=== PATIENT | female | born 2000 | race Caucasian/White ===

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

== ENCOUNTER → 2020-02-22 09:36 | Outpatient (CLI) | payer BC, MEDICAID, SELFPAY ==
[2020-02-22 12:55] LABS: Total Protein 24 Hour,Urine 413 mg/24 hr (40-90); Total Volume,Urine 2750 mL (600-1600)
== END ==
PROVIDERS: Visit Provider Obstetrics & Gynecology
DX: R60.9 Edema, unspecified (principal)
CPT/HCPCS: 84155

== ENCOUNTER 2022-06-17 08:18 | Emergency (ER) | payer BC, OTHER, SELFPAY ==
[2022-06-17 08:28] VITALS: BP 139/75; PULSE 80; RESP 18; TEMP 37.4; O2SAT 95; BMI 27.4
[2022-06-17 08:37] LABS: UTC Strep Screen (Rapid) Negative (Negative)
[2022-06-17 08:39] VITALS: BP 139/70; PULSE 80; RESP 18; TEMP 37.4; O2SAT 95
--- NOTE | 2022-06-17 08:47 | EXP.UTC ---
Discharge Plan Disposition Patient Disposition: Home, Self-Care Condition: Good Prescriptions Prescriptions: New amoxicillin [amoxicillin] 500 mg tablet 500 mg PO BID 10 Days Qty: 20 0RF No Action [id number] ML syrup 10 ml PO Q4HP PRN (Reason: Cough) Qty: 250 0RF ondansetron 4 MG tablet,disintegrating 4 mg PO Q8H Qty: 10 0RF oseltamivir 75 MG capsule 75 mg PO BID Qty: 10 0RF Referrals Follow up/Referrals: Soliatrio Terrazas MD [Primary Care Provider] - See instructions Activity Restrictions/Add. Instructions Additional Instructions/Restrictions: Drink plenty of fluids. Take tylenol or ibuprofen for pain or fever. Take the medications as directed. Follow up with your regular doctor. GO TO THE ER FOR ANY WORSENING SYMPTOMS Clinical Impressions Clinical Impression: Pharyngitis Instructions Patient Instructions: DI for Pharyngitis/Tonsillopharyngitis -- Adult Discharge ED Provider: René Bragg [facility] General Stated complaint: Sore throat Mode of Arrival: Ambulatory Source of Information: Patient Limitations: No Limitations Time Seen by Provider: 06/17/22 08:47 Description of Symptoms (Recalled from Triage Doc. by RN): Patient reports sore throat since tuesday. HEENT Symptoms (Recalled from RN notes): Yes Resp Symptoms (Recalled from RN notes): No Skin Symptoms (Recalled from RN notes): No MS Symptoms (Recalled from RN notes): No Functional Status (Recalled from RN notes): wnl History of Present Illness Provider Complaint: She states that for the past 2 days she has had sore throat. She has had chills but no fever that she knows of. She has sinus congestion, but no significant chest congestion. Related Data Previous Rx's Medication Instructions Recorded [id number] 10 ml PO Q4HP PRN Cough #250 mL 06/15/17 2 mg-30 mg-10 mg/5 mL oral syrup ondansetron 4 mg disintegrating 4 mg PO Q8H Nausea & vomiting ##10 06/15/17 tablet oseltamivir 75 mg capsule 75 mg PO BID #10 caps 06/15/17 amoxicillin 500 mg tablet 500 mg PO BID 10 days #20 tabs 06/17/22 Allergies Allergy/AdvReac Type Severity Reaction Status Date / Time NKDA Allergy Unknown Uncoded 04/19/17 15:08 Worker's Comp Is this a Worker's Comp case?: No [facility] Disclaimer: The information contained in this section may have been updated after the patient was seen, as this information can be updated by other users. Social History Smoking Status: Never smoker alcohol intake: never current occupational status: employed Travel in the last 8 weeks: None ROS Obtained: Yes All systems reviewed & no additional complaints except as documented Constitutional Constitutional: Reports chills and Denies fever(s) Eyes Eyes: Denies eye discharge ENT Ears, Nose, Mouth, and Throat: Reports as per HPI Cardiovascular Cardiovascular: Denies chest pain Respiratory Respiratory: Denies chest congestion and Reports cough Gastrointestinal Gastrointestingal: Reports nausea; Denies abdominal pain, constipation, cramping, diarrhea or vomiting Musculoskeletal Musculoskeletal: Denies arthralgias Integumentary/Breasts Skin/Breast: Denies rash Neurologic Neurologic: Denies paresthesias Physical Exam General General appearance: alert and in no apparent distress Head Head exam: atraumatic, normocephalic and normal inspection Eye Eye exam: Present normal appearance, PERRL and EOMI ENT ENT exam: Present mucous membranes moist and normal external ear exam Expanded ENT Exam TM/Canal exam: Bilateral TM: erythema and bulging Nose exam: Absent sinus tenderness Mouth exam: Present normal external inspection; Absent drooling Teeth exam: Present normal inspection Throat exam: Present tonsillar erythema, tonsillomegaly and tonsillar exudate Neck Neck exam: Present normal inspection, full ROM and trachea midline; Absent tenderness, m
== END 2022-06-17 09:07 | disposition home or self-care (01) ==
PROVIDERS: Emergency Provider Nurse Practitioner Family; PCP Internal Medicine Adolescent Medicine
DX: J02.9 Acute pharyngitis, unspecified (principal)
CPT/HCPCS: 87880; 99212; G0463

== ENCOUNTER 2023-12-30 11:11 | Outpatient (CLI) | payer BC, OTHER, SELFPAY | END 2023-12-30 23:59 | disposition home or self-care (01) | LOC: LAB.DROPOF 01-03 11:12 | PROVIDERS: PCP Student in an Organized Health Care Education/Training Program; Visit Provider Student in an Organized Health Care Education/Training Program | DX: J02.9 Acute pharyngitis, unspecified (principal) | CPT/HCPCS: 87070 ==

== ENCOUNTER 2024-03-20 10:26 | Outpatient (CLI) | payer BC, OTHER, SELFPAY | END 2024-03-20 23:59 | disposition home or self-care (01) | LOC: LAB.DROPOF 03-21 13:20 | PROVIDERS: PCP Student in an Organized Health Care Education/Training Program; Visit Provider Student in an Organized Health Care Education/Training Program | DX: R39.9 Unspecified symptoms and signs involving the genitourinary system (principal) | CPT/HCPCS: 87086; 87088; 87186 ==

== ENCOUNTER 2024-11-15 12:47 | Outpatient (CLI) | payer BC, OTHER, SELFPAY ==
--- NOTE | 2024-11-15 12:53 | US_ITS ---
FINAL REPORT CLINICAL HISTORY: SWELLING MASS LUMP HEAD COMPARISON: None FINDINGS: Limited sonographic images were obtained of the soft tissues in the head and neck at the area of interest. There is no adenopathy, solid or cystic mass identified at the area of interest. IMPRESSION: No discrete lesions. Reviewed, Interpreted and Dictated by Ayanna Schaeffer MD Transcribed by Candace Castillo Authenticated and . [facility]
--- OUTSIDE RECORDS SUMMARY | 2024-11-15 12:53 | XMS_ITS | Data Portability ---
Author Organization [facility] Address [address] [place] [address] Assessment No assessment recorded. Plan of Treatment Reminders Order Date Submit Date Provider Last Modified By Organization Details Last Modified Time Details Appointments None recorded. Lab brca (1+2) mutation analysis, tumor tissue [facility]24 [facility] [address] [place], [address], 5 13:08:03 Hepatitis C IgG Ab, qual, serum 2024 025 [facility]), [address] [place], [address], 5 13:08:04 lipid panel, serum 2024 0[facility] [address] [place], [address], 5 13:08:03 CMP, serum or plasma 2024 025 [facility] [address] [place], [address], 5 13:08:02 CBC w/ auto diff 2024 025 [facility]), [address] [place], [address], 5 13:08:01 vitamin D, 25-hydroxy , total, serum 2024 025 [facility]), [address] [facility], [place], [address], 5 13:08:06 TSH, ultra-sens itive, serum 2024 025 [facility]), [address] [facility], [place], [address], 5 13:08:05 HIV 1 + 2, meaningful use set 2024 025 [facility]), [address] [facility], [place], [address], 5 13:08:[address] referral 2024 025 [facility] Georgia Reese DO, [address], [place] , [place], [address], 5 09:09:19 Procedures None recorded. Surgeries None recorded. Imaging XR, skull 2024 025 [facility] Centralized Scheduling, [address] , [place], [address], 11:16:42 Medication Orders Bactrim DS 800 mg-160 mg tablet 2024 025 [facility], [address] [place], [address], 5 13:54:40 Wegovy 2.4 mg/0.75 mL subcutaneo us pen injector [id number] [facility], [address] [place], [address], 5 11:56:28 Wegovy 2.4 mg/0.75 mL subcutaneo us pen injector 2024 025 [facility], [address], [place], [address], 15:03:53 Patient TargetsNo targets recorded. 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 Referring Physician: Gina Breen, Family Medicine, Encounter Date: 11/09/2024 Results Created Date Observation Date Name Description Value Unit Range Abnormal Flag Note LastModifiedBy Organization Detail LastModifiedTime 06/07/1906/08/2024 CBC WITH DIFFE RENTI AL/PL ATELE T WBC 5.8 x10e3 /uL 3.4-10 .8 normal Not Available [facility] ([facility]) [address] [place], [address], 07/13/2024 13:08:01 06/07/19 25 06/08/2024 CBC WITH DIFFE RENTI AL/PL ATELE T RBC 4.30 x10e6 /uL 3.77-5 .28 normal Not Available [facility] ([facility]) [address] [place], [address], 07/13/2024 13:08:01 06/07/19 25 06/08/2024 CBC WITH DIFFE RENTI AL/PL ATELE T hemoglobin 13.4 g/dL 11.1-1 5.9 normal Not Available [facility] ([facility]) [address] [place], [address], 07/13/2024 13:08:01 06/07/19 25 06/08/2024 CBC WITH DIFFE RENTI AL/PL ATELE T hematocrit 39.4 % 34.0-4 6.6 normal Not Available [facility] ([facility]) [address] [place], [address], 07/13/2024 13:08:01 06/07/19 25 06/08/2024 CBC WITH DIFFE RENTI AL/PL ATELE T MCV 92 fL 79-97 normal Not Available [facility] ([facility]) [address] [facility], [place], [address], 07/13/2024 13:08:01 06/07/19 25 06/08/2024 CBC WITH DIFFE RENTI AL/PL ATELE T MCH 31.2 pg 26.6-3 3.0 normal Not Available [facility] ([facility]) [address] [facility], [place], [address], 07/13/2024 13:08:01 06/07/19 25 06/08/2024 CBC WITH DIFFE RENTI AL/PL ATELE T MCHC 34.0 g/dL 31.5-3 5.7 normal Not Available [facility] ([facility]) [address] [facility], [place], [address], 07/13/2024 13:08:01 06/07/19 25 06/08/2024 CBC WITH DIFFE RENTI AL/PL ATELE T RDW 12.1 % 11.7-1 5.4 Not Available [facility] ([facility]) [address] [facility], [place], [address], 07/13/2024 13:08:01 06/07/19 25 06/08/2024 CBC WITH DIFFE RENTI AL/PL ATELE T platelets 259 x10e3 /uL 150-45 0 normal Not Available [facility] ([facility]) [address] [facility], [place], [address], 07/13/2024 13:08:01 06/07/19 25 06/08/2024 CBC WITH DIFFE RENTI AL/PL ATELE T neutrophils 62 % not estab. normal Not Available [facility] ([facility]) [address] [facility], [place], [address], 07/13/2024 13:08:01 06/07/19 25 06/08/2024 CBC WITH DIFFE RENTI AL/PL ATELE T lymphs 30 % not estab. normal Not Available [facility] ([facility]) [address] [facility], [place], [address], 07/13/2024 13:08:01 06/07/19 25 06/08/2024 CBC WITH DIFFE RENTI AL/PL ATELE T monocytes 7 % not estab. normal Not Available [facility] ([facility]) [address] [facility], [place], [address], 07/13/2024 13:08:01 06/07/19 25 06/08/2024 CBC WITH DIFFE RENTI AL/PL ATELE T eos 1 % not estab. normal Not Available [facility] ([facility]) [address] [facility], [place], [address], 07/13/2024 13:08:01 06/07/19 25 06/08/2024 CBC WITH DIFFE RENTI AL/PL ATELE T basos 0 % not estab. normal Not Available [facility] ([facility]) [address] [place], [address], 07/13/2024 13:08:01 06/07/19 25 06/08/2024 CBC WITH DIFFE RENTI AL/PL ATELE T immature cells INVENTORY PLANNER Not Available [facility] ([facility]) [address] [facility], [place], [address], 07/13/2024 13:08:01 06/07/19 25 06/08/2024 CBC WITH DIFFE RENTI AL/PL ATELE T neutrophils (absolute) 3.6 x10e3 /uL 1.4-7. 0 normal Not Available [facility] ([facility]) [address] [facility], [place], [address], 07/13/2024 13:08:01 06/07/19 25 06/08/2024 CBC WITH DIFFE RENTI AL/PL ATELE T lymphs (absolute) 1.7 x10e3 /uL 0.7-3. 1 normal Not Available [facility] ([facility]) [address] [place], [address], 07/13/2024 13:08:01 06/07/19 25 06/08/2024 CBC WITH DIFFE RENTI AL/PL ATELE T monocytes(ab solute) 0.4 x10e3 /uL 0.1-0. 9 normal Not Available [facility] ([facility]) [address] [place], [address], 07/13/2024 13:08:01 06/07/19 25 06/08/2024 CBC WITH DIFFE RENTI AL/PL ATELE T eos (absolute) 0.0 x10e3 /uL 0.0-0. 4 normal Not Available [facility] ([facility]) [address] [place], [address], 07/13/2024 13:08:01 06/07/19 25 06/08/2024 CBC WITH DIFFE RENTI AL/PL ATELE T baso (absolute) 0.0 x10e3 /uL 0.0-0. 2 normal Not Available [facility] ([facility]) [address] [place], [address], 07/13/2024 13:08:01 06/07/19 25 06/08/2024 CBC WITH DIFFE RENTI AL/PL ATELE T immature granulocytes 0 % not estab. Not Available [facility] ([facility]) [address] [place], [address], 07/13/2024 13:08:01 06/07/19 25 06/08/2024 CBC WITH DIFFE RENTI AL/PL ATELE T immature grans (abs) 0.0 x10e3 /uL 0.0-0. 1 Not Available [facility] ([facility]) [address] [place], [address], 07/13/2024 13:08:01 06/07/19 25 06/08/2024 CBC WITH DIFFE RENTI AL/PL ATELE T NRBC INVENTORY PLANNER Not Available [facility] ([facility]) [address] [facility], [place], [address], 07/13/2024 13:08:01 06/07/19 25 06/08/2024 CBC WITH DIFFE RENTI AL/PL ATELE T hematology comments: INVENTORY PLANNER Not Available [facility] ([facility]) [address] [facility], [place], [address], 07/13/2024 13:08:01 06/07/19 25 06/08/2024 COMP. METAB OLIC PANEL (14) glucose 75 mg/dL 70-99 normal Not Available [facility] ([facility]) [address] [facility], [place], [address], 07/13/2024 13:08:02 06/07/19 25 06/08/2024 COMP. METAB OLIC PANEL (14) BUN 9 mg/dL 6-20 normal Not Available [facility] ([facility]) [address] [place], [address], 07/13/2024 13:08:02 06/07/19 25 06/08/2024 COMP. METAB OLIC PANEL (14) creatinine 0.69 mg/dL 0.57-1 .00 normal Not Available [facility] ([facility]) [address] [facility], [place], [address], 07/13/2024 13:08:02 06/07/19 25 06/08/2024 COMP. METAB OLIC PANEL (14) eGFR 124 mL/mi n/1.7 3 >59 normal Not Available [facility] ([facility]) [address] [place], [address], 07/13/2024 13:08:02 06/07/19 25 06/08/2024 COMP. METAB OLIC PANEL (14) BUN/creatini ne ratio 13 9-23 normal Not Available [facility] ([facility]) [address] [place], [address], 07/13/2024 13:08:02 06/07/19 25 06/08/2024 COMP. METAB OLIC PANEL (14) sodium 141 mmol/ L 134-14 4 normal Not Available [facility] ([facility]) [address] [place], [address], 07/13/2024 13:08:02 06/07/19 25 06/08/2024 COMP. METAB OLIC PANEL (14) potassium 4.1 mmol/ L 3.5-5. 2 normal Not Available [facility] ([facility]) [address] [place], [address], 07/13/2024 13:08:02 06/07/19 25 06/08/2024 COMP. METAB OLIC PANEL (14) chloride 104 mmol/ L 96-106 normal Not Available [facility] ([facility]) [address] [place], [address], 07/13/2024 13:08:02 06/07/19 25 06/08/2024 COMP. METAB OLIC PANEL (14) carbon dioxide, total 23 mmol/ L 20-29 normal Not Available [facility] ([facility]) [address] [place], [address], 07/13/2024 13:08:02 06/07/19 25 06/08/2024 COMP. METAB OLIC PANEL (14) calcium 9.8 mg/dL 8.7-10 .2 normal Not Available [facility] ([facility]) [address] [place], [address], 07/13/2024 13:08:02 06/07/19 25 06/08/2024 COMP. METAB OLIC PANEL (14) protein, total 7.1 g/dL 6.0-8. 5 normal Not Available [facility] ([facility]) [address] [place], [address], 07/13/2024 13:08:02 06/07/19 25 06/08/2024 COMP. METAB OLIC PANEL (14) albumin 4.8 g/dL 4.0-5. 0 normal Not Available [facility] ([facility]) [address] [place], [address], 07/13/2024 13:08:02 06/07/19 25 06/08/2024 COMP. METAB OLIC PANEL (14) globulin, total 2.3 g/dL 1.5-4. 5 Not Available [facility] ([facility]) [address] [place], [address], 07/13/2024 13:08:02 06/07/19 25 06/08/2024 COMP. METAB OLIC PANEL (14) bilirubin, total 0.3 mg/dL 0.0-1. 2 normal Not Available [facility] ([facility]) [address] [place], [address], 07/13/2024 13:08:02 06/07/19 25 06/08/2024 COMP. METAB OLIC PANEL (14) alkaline phosphatase 49 IU/L 44-121 normal Not Available [facility] ([facility]) [address] [place], [address], 07/13/2024 13:08:02 06/07/19 25 06/08/2024 COMP. METAB OLIC PANEL (14) AST (SGOT) 15 IU/L 0-40 normal Not Available [facility] ([facility]) [address] [place], [address], 07/13/2024 13:08:02 06/07/19 25 06/08/2024 COMP. METAB OLIC PANEL (14) ALT (SGPT) 10 IU/L 0-32 normal Not Available [facility] ([facility]) [address] [place], [address], 07/13/2024 13:08:02 06/07/19 25 07/13/2024 BRCAS SURE COMPR EHENS PAIGE PANEL specimen type INVENTORY PLANNER Not Available [facility] ([facility]) [address] [facility], [place], [address], 07/13/2024 13:08:02 06/07/19 25 07/13/2024 BRCAS SURE COMPR EHENS PAIGE PANEL preauthoriza tion Commen t Addit ional infor matio n requi red from order ing provi page and/o r patie nt. Conta ct attem pts unsuc cessf ul. Test cance led. Pleas e conta ct 866-2 48-12 65. Not Available [facility] ([facility]) [address] [facility], [place], [address], 07/13/2024 13:08:02 06/07/19 25 07/13/2024 BRCAS SURE COMPR EHENS PAIGE PANEL clinical indication INVENTORY PLANNER Not Available [facility] ([facility]) [address] [facility], [place], [address], 07/13/2024 13:08:02 06/07/19 25 07/13/2024 BRCAS SURE COMPR EHENS PAIGE PANEL results TNP Test not perfo rmed Not Available [facility] ([facility]) [address] [facility], [place], [address], 07/13/2024 13:08:02 06/07/19 25 07/13/2024 BRCAS SURE COMPR EHENS PAIGE PANEL interpretati on INVENTORY PLANNER Not Available [facility] ([facility]) [address] [facility], [place], [address], 07/13/2024 13:08:02 06/07/19 25 07/13/2024 BRCAS SURE COMPR EHENS PAIGE PANEL additional clinical inform. INVENTORY PLANNER Not Available [facility] ([facility]) [address] [facility], [place], [address], 07/13/2024 13:08:02 06/07/19 25 07/13/2024 BRCAS SURE COMPR EHENS PAIGE PANEL recommendati ons INVENTORY PLANNER Not Available [facility] ([facility]) [address] [facility], [place], [address], 07/13/2024 13:08:02 06/07/19 25 07/13/2024 BRCAS SURE COMPR EHENS PAIGE PANEL comments INVENTORY PLANNER Not Available [facility] ([facility]) [address] [facility], [place], [address], 07/13/2024 13:08:02 06/07/19 25 07/13/2024 BRCAS SURE COMPR EHENS PAIGE PANEL methods and limitations INVENTORY PLANNER Not Available [facility] ([facility]) [address] [facility], [place], [address], 07/13/2024 13:08:02 06/07/19 25 07/13/2024 BRCAS SURE COMPR EHENS PAIGE PANEL references INVENTORY PLANNER Not Available [facility] ([facility]) [address] [facility], [place], [address], 07/13/2024 13:08:02 06/07/19 25 07/13/2024 BRCAS SURE COMPR EHENS PAIGE PANEL released by INVENTORY PLANNER Not Available [facility] ([facility]) [address] [facility], [place], [address], 07/13/2024 13:08:02 06/07/19 25 07/13/2024 BRCAS SURE COMPR EHENS PAIGE PANEL pdf INVENTORY PLANNER Not Available [facility] ([facility]) [address] [facility], [place], [address], 07/13/2024 13:08:02 06/07/19 25 06/08/2024 LIPID PANEL cholesterol, total 146 mg/dL 100-19 9 normal Not Available [facility] ([facility]) [address] [place], [address], 07/13/2024 13:08:03 06/07/19 25 06/08/2024 LIPID PANEL triglyceride s 53 mg/dL 0-149 normal Not Available [facility] ([facility]) [address] [place], [address], 07/13/2024 13:08:03 06/07/19 25 06/08/2024 LIPID PANEL HDL cholesterol 66 mg/dL >39 normal Not Available [facility] ([facility]) [address] [place], [address], 07/13/2024 13:08:03 06/07/19 25 06/08/2024 LIPID PANEL VLDL cholesterol darnell 11 mg/dL 5-40 Not Available [facility] ([facility]) [address] [place], [address], 07/13/2024 13:08:03 06/07/19 25 06/08/2024 LIPID PANEL LDL chol calc ([facility]) 69 mg/dL 0-99 Not Available [facility] ([facility]) [address] [place], [address], 07/13/2024 13:08:03 06/07/19 25 06/08/2024 LIPID PANEL LDL calc comment: INVENTORY PLANNER Not Available [facility] ([facility]) [address] [facility], [place], [address], 07/13/2024 13:08:03 06/07/19 25 06/08/2024 HCV ANTIB KEVIN CASCA DE(PC R/GEN O) HCV Ab Non Reacti ve non reacti ve Not Available [facility] ([facility]) [address] [place], [address], 07/13/2024 13:08:04 06/07/19 25 06/08/2024 HCV ANTIB KEVIN CASCA DE(PC R/GEN O) interpretati on: Commen t Not infec [place] with HCV unles s early or acute infec tion is suspe cted (whic h may be delay ed in an immun ocomp romis ed indiv idual ), or other evide nce exist s to indic ate HCV infec tion. Not Available [facility] ([facility]) [address] [facility], [place], [address], 07/13/2024 13:08:04 06/07/19 25 06/08/2024 TSH TSH 1.640 uIU/m L 0.450- 4.500 normal Not Available [facility] ([facility]) [address] [facility], [place], [address], 07/13/2024 13:08:05 06/07/19 25 06/08/2024 VITAM IN D, 25-HY DROXY vitamin D, 25-hydroxy 28.9 NG/mL 30.0-1 00.0 below low normal Vitam in D defic iency has been defin ed by the Insti tute of Medic ine and an Endoc rine Socie ty pract ice guide line as a level of serum 25-OH vitam in D less than 20 ng/mL (1,2) . The Endoc rine Socie ty went on to furth er defin e vitam in D insuf ficie ncy as a level betwe en 21 and 29 ng/mL (2). 1. IOM (Inst itute of Medic ine). 2009. Dieta ry refer ence intak es for calci um and D. Herbie matson [place]: [facility] . 2. Hanny barger MF, Soham hsieh [place], Chiki off-F errar i VELAZQUEZ, et al. Evalu ation , treat ment, and preve ntion of vitam in D defic iency : an Endoc rine Socie ty clini darnell pract ice guide line. JCEM. 2010; 96(7) :1911 -30. Not Available [facility] ([facility]) [address] [facility], [place], [address], 07/13/2024 13:08:05 06/07/19 25 06/08/2024 HIV AB/P2 4 AG WITH REFLE X HIV Ab/P24 Ag screen Non Reacti ve non reacti ve HIV-1 /HIV- 2 antib odies and HIV-1 p24 antig en were NOT detec [place]. There is no labor atory evide nce of HIV infec tion. HIV Negat paige Not Available [facility] ([facility]) [address] [facility], [place], [address], 07/13/2024 13:08:06 11/13/19 25 11/09/2024 XR, skull No observ ation record ed. [email or web address] [facility] (Rad[facility]) [address] , [place], [address], 11/12/2024 17:35:21 Result Notes None recorded. Problems Name Problem SNOMED Code Status Onset Date Resolution Date Notes Provider Name and Address Organization Details Recorded Time Obesity 633124639 Active [address] [place] [address], [phone], [employer] 5 11:47:10 Vitamin D deficiency 35060034 Active [address] [place] [address], [address] 8, [employer] 11:47:15 Mass of scalp 829914478 Active [address], [address], [employer] 13:54:06 Problem Notes None recorded. Medical Equipment None Reported. Allergies No known drug allergies Medications Name Sig Start Date Stop Date Status Note LastModified by Organization Details LastModified Time ondansetron 8 mg disintegrat ing tablet 06/07 completed Not Available Not Available Not Available oxycodone-a cetaminophe n 5 mg-325 mg tablet 06/07 completed Not Available Not Available Not Available phenazopyri dine 100 mg tablet 06/07 completed Not Available Not Available Not Available mupirocin 2 % topical ointment 06/07 completed Not Available Not Available Not Available ergocalcife rol (vitamin D2) 1,250 mcg (50,000 unit) capsule TAKE 1 CAPSULE BY MOUTH ONCE A WEEK FOR VITAMIN D DEFICIENC Y active Not Available Not Available No t Available methylpredn isolone 4 mg tablets in a dose pack 06/07 completed Not Available Not Available Not Available amoxicillin 500 mg-potassiu m clavulanate 125 mg tablet 06/07 completed Not Available Not Available Not Available Bactrim DS 800 mg-160 mg tablet Take 1 tablet every 12 hours by oral route for 10 days. 2024 active Not Available Not Available Not Avai lable nitrofurant oin monohydrate /macrocryst als 100 mg capsule 06/07 completed Not Available Not Available Not Available cholecalcif nat (vitamin D3) 50 mcg (2,000 unit) capsule TAKE 1 CAPSULE BY MOUTH ONCE DAILY active Not Available Not Available No t Available Wegovy 2.4 mg/0.75 mL subcutaneou s pen injector active Not Available Not Available Not Available Wegovy 1.7 mg/0.75 mL subcutaneou s pen injector INJECT 1 SYRINGE SUBCUTANE OUSLY ONCE A WEEK 06/07 completed Not Available Not Available Not Available Wegovy 0.25 mg/0.5 mL subcutaneou s pen injector INJECT 1 SYRINGE SUBCUTANE OUSLY ONCE WEEKLY 06/07 completed Not Available Not Available Not Available Wegovy 0.5 mg/0.5 mL subcutaneou s pen injector INJECT 1 SYRINGE SUBCUTANE OUSLY ONCE A WEEK ON WEEKS 5-8 OF THERAPY 06/07 completed Not Available Not Available Not Available Vitals Date Recorded Body height Body mass index (BMI) Body weight Body temperature Heart rate Oxygen saturation Oxygen saturation in Arterial blood by Pulse oximetry Systolic And Diastolic Provider Name and Address Organization Details Last Updated DateTime 5 167.64 cm 24 kg/m2 49135.2 6 g 98.3 [degF] 80 /min 99 % 99 % 104/70 mm[Hg] [facility], [facility]. 5 14:51:12 Date Recorded Body height Body mass index (BMI) Body weight Oxygen saturation Oxygen saturation in Arterial blood by Pulse oximetry Heart rate Body temperature Systolic And Diastolic Provider Name and Address Organization Details Last Updated DateTime 5 167.64 cm 22.5 kg/m2 33805.4 9 g 100 % 100 % 84 /min 98 [degF] 104/70 mm[Hg] [employer] 5 10:37:15 Date Recorded Body height Body mass index (BMI) Body weight Oxygen saturation Oxygen saturation in Arterial blood by Pulse oximetry Heart rate Body temperature Systolic And Diastolic Provider Name and Address Organization Details Last Updated DateTime 5 167.64 cm 22.9 kg/m2 89273.6 8 g 98 % 98 % 86 /min 98.2 [degF] 102/68 mm[Hg] [employer] 5 13:41:31 Social History Question Answer Notes LastModified by Organizat ion Details LastModified Time Tobacco Smoking Status Never Smoker [employer] 06/07/2024 14:53:31 Do You Have An Advance Directive? No Information not available 06/07/2024 Is Your Home Air Conditioned? Yes Information not available 06/07/2024 Do You Wear A Helmet When Biking? No Information not available 06/07/2024 Are You Blind Or Do You Have Difficulty Seeing? No Information not available 06/07/2024 What Is Your Level Of Caffeine Consumption? Occasional Information not available 06/07/2024 What Type Of Extended Day Teacher Do You Use? [employer] Information not available 06/07/2024 Have You Been To An Area Known To Be High Risk For COVID-19? No Information not available 06/07/2024 Are You Deaf Or Do You Have Serious Difficulty Hearing? No Information not available 06/07/2024 What Type Of Diet Are You Following? REGULAR Information not available 06/07/2024 Who Is Your Employer? [employer] Information not available 06/07/2024 How Many Days Of Moderate To Strenuous Exercise, Like A Brisk Walk, Did You Do In The Last 7 Days? 7 Information not available 06/07/2024 Have There Been Any Changes To Your Family Or Social Situation? No Information not available 06/07/2024 Are There Any Guns Present In Your Home? Yes Information not available 06/07/2024 Which Of Your Hands Is Dominant? Left Information not available 06/07/2024 What Is Your Home Situation? Mother Information not available 06/07/2024 Do You Have A Medical Power Of Pig Lead Melter Helper? No Information not available 06/07/2024 What Was The Date Of Your Most Recent Tobacco Screening? 11/09/2024 Information not available 11/09/2024 Do You Have Any Pets? Yes Information not available 06/07/2024 Do You Use Protection During Sex? Usually Information not available 06/07/2024 What Is Your Relationship Status? Information not available 06/07/2024 Have You Repeated Any Grades? No Information not available 06/07/2024 Do You Use Your Seat Belt Or Car Seat Routinely? Yes Information not available 06/07/2024 Are You Sexually Active? Yes Information not available 06/07/2024 Do You Have Any Siblings? Yes Information not available 06/07/2024 Do You Have Smoke And Carbon Monoxide Detectors In Your Home? Yes Information not available 06/07/2024 At What Age Did You Start Smoking Tobacco? 21 Information not available 06/07/2024 Are You Passively Exposed To Smoke? No Information not available 06/07/2024 Are There Any Smokers In Your House? No Information not available 06/07/2024 How Much Tobacco Do You Smoke? No Information not available 06/07/2024 Do You Participate In Social Media? Yes Information not available 06/07/2024 Do You Use Sunscreen Routinely? No Information not available 06/07/2024 Has Tobacco Cessation Counseling Been Provided? Yes Information not available 06/07/2024 On What Date Was Tobacco Cessation Counseling Provided? 11/09/2024 Information not available 11/09/2024 How Many Years Have You Smoked Tobacco? 4 Information not available 06/07/2024 Have You Recently Traveled Abroad? No Information not available 06/07/2024 Do You Have Difficulty Walking Or Climbing Stairs? No Information not available 06/07/2024 Are You Currently In School? No Information not available 06/07/2024 What Contraceptive Method Was Reported At Start Of This Visit? None Information not available 06/07/2024 Do You Have Any Dietary Restrictions? No Information not available 06/07/2024 Sex: Female Functional Status Question Answer Note LastModified by Organizat ion Details LastModified Time Do you use any illicit or recreational drugs? No Information not available 06/07/2024 Do you or have you ever used any other forms of tobacco or nicotine? Yes Information not available 06/07/2024 What is your level of alcohol consumption? None Information not available 06/07/2024 Do you or have you ever used smokeless tobacco? Never used smokeless tobacco Information not available 06/07/2024 Are you currently employed? Yes Information not available 06/07/2024 Do you have transportation difficulties? No Information not available 06/07/2024 Are you able to walk? YESWOREST Information not available 06/07/2024 Do you have difficulty doing errands alone? No Information not available 06/07/2024 Are you able to care for yourself? Yes Information n ot available 06/07/2024 Do you have difficulty dressing or bathing? No Information not available 06/07/2024 Do you or have you ever used e-cigarettes or vape? Current user of electronic cigarettes Information not available 06/07/2024 What is your exercise level? Moderate Information not available 06/07/2024 Mental Status Question Answer Note LastModified by Organizat ion Details LastModified Time Do you feel stressed (tense, restless, nervous, or anxious, or unable to sleep at night)? [id number] Information not available 06/07/2024 Do you have difficulty concentrating, remembering or making decisions? No Information no t available 06/07/2024 Are you or have you been involved with bullying? No Information not available 06/07/2024 Family History Relationship Description Onset Age of this Age Resolved Age Notes LastModified by Organization Details LastModified Time Mother Malignant tumor of breast Not available 2024 14:51:53 Unspecified Relation Malignant tumor of breast Not available 2024 14:51:53 Maternal Grandmother Malignant tumor of breast Not available 2024 14:51:53 Paternal Grandfather Malignant tumor of pancreas Not available 2024 14:52:52 Medical History Condition Response Coronary Artery Disease N Other N Gout N Blood Diseases N Kidney Stones N Hyperthyroidism N Blood Transfusion N Breast Cancer N Emergency room visit since last appointm ent. N Lung Disease N COPD N Depression N Dermatologic Disorders N Hypothyroidism N Defects or Inherited Disease N Developmental or Behavioral Disorders N Breast Problem N Difficulty Swallowing N Anesthesia Complications N History of STI N Meniere's disease N Anxiety Disorder N Muscle, Joint, or Bone Problems N Autoimmune disease N Vision or Eye Problems N Arthritis N Polyps N Infertility N Mental Disorder N Congenital Anomalies N Acid Reflux (GERD) N Cancer N Stroke N Neurologic/Epilepsy N Endometriosis N Bladder or Kidney Problems N High Cholesterol N Liver Disease N Psychiatric/Mental Health Condition N Organ Transplant N Dialysis N Schizophrenia N Fibromyalgia N Headaches N Kidney Disease N Allergies/Hayfever N Heart Problems N Ear or Hearing Problems N Hospitalizations N Learning Disorder N Artificial Joints N Thyroid Problems N GI Problems N Acne N ADD/ADHD N Eating Disorder N Anemia N Constipation N Mental Illness N Diabetes N Ovarian Cancer N Bedwetting N Hepatitis/Liver Disease N Tuberculosis N Eczema N Abuse/Domestic Violence N Diverticulitis N Asthma N Trauma/Violence N Substance Abuse N Reflux/GERD N Depression/ depression N Hepatitis N Heart Disease N Pulmonary Embolism N Tourette Syndrome N Chronic Ear Infections N Pre-Eclampsia N Hypertension N Chicken Pox N Autism Spectrum Disorder (ASD) N Osteoporosis N Thrombophilias N Gynecological History Statement/Question Response Abnormal Pap N Flow Moderate Date of LMP 11/08/2024 HPV Vaccine N Duration of Flow (days) 6 Most Recent Mammogram Age at Menarche 13 Current Control Method None Age at First Child 20 Frequency of Cycle (Q days) 26 Sexually Active? Y Menses Monthly Y Date of Last Pap Smear LMP Definite Obstetrics History GPAL:G 1 P 1 0 0 1 Type Value Multiple Births 0 Full Term 1 Induced 0 Spontaneous 0 Premature 0 Living 1 Ectopics 0 Total 1 Immunizations Vaccine Type Date Status Note Provider Nam e and Address Organization Details Recorded Time Hib, unspecified formulation 1 completed Radha Vice null, [employer] 06/07/2024 14:52:03 Hib, unspecified formulation 1 completed Radha Vice null, [employer] 06/07/2024 14:52:03 Hib, unspecified formulation 1 completed Radha Vice null, [employer] 06/07/2024 14:52:03 Hib, unspecified formulation 2 completed Radha Vice null, [employer] 06/07/2024 14:52:03 IPV 1 completed Radha Vice null, [employer] 06/07/2024 14:52:03 IPV 1 completed Radha Vice null, [employer] 06/07/2024 14:52:03 IPV 1 completed Radha Vice null, [employer] 06/07/2024 14:52:03 IPV 4 completed Radha Vice null, [employer] 06/07/2024 14:52:03 MMR 2 completed Radha Vice null, [employer] 06/07/2024 14:52:03 MMR 5 completed Radha Vice null, [employer] 06/07/2024 14:52:03 Tdap 2 completed Radha Vice null, [employer] 06/07/2024 14:52:03 varicella 5 completed Radha Vice null, [employer] 06/07/2024 14:52:03 HPV, quadrivalent 2 completed Radha Vice null, [employer] 06/07/2024 14:52:03 Hep B, adolescent or pediatric 1 completed Radha Vice null, [employer] 06/07/2024 14:52:03 Hep B, adolescent or pediatric 1 completed Radha Vice null, [employer] 06/07/2024 14:52:03 Hep B, adolescent or pediatric 0 completed Radha Vice null, [employer] 06/07/2024 14:52:03 Hep A, ped/adol, 2 dose 2 completed Radha Vice null, [employer] 06/07/2024 14:52:03 Hep A, ped/adol, 2 dose 8 completed Radha Vice null, [employer] 06/07/2024 14:52:03 meningococcal MCV4P 8 completed Radha Vice null, [employer] 06/07/2024 14:52:03 DTaP, unspecified formulation 1 completed Radha Vice null, [employer] 06/07/2024 14:52:03 DTaP, unspecified formulation 1 completed Radha Vice null, [employer] 06/07/2024 14:52:03 DTaP, unspecified formulation 1 completed Radha Vice null, [employer] 06/07/2024 14:52:03 DTaP, unspecified formulation 2 completed Radha Vice null, [employer] 06/07/2024 14:52:03 DTaP, unspecified formulation 4 completed Radha Vice null, [employer] 06/07/2024 14:52:03 meningococcal MCV4, unspecified formulation 2 completed Radha Vice null, [employer] 06/07/2024 14:52:03 Past Encounters Encounter ID Performer Location Encounter Start Date Encounter Closed Date Diagnosis/Indication Diagnosis SNOMED-CT Code Diagnosis ICD10 Code Diagnosis Note [id number] JULIANNA Salazar [facility] [address] [place] [address] 06/07/2024 14:35:24 06/07/2024 14:36:03 Family history of breast cancer 369013925 Z80.3 Adult heal th examination 585785965 Z00.00 HIV screening 709573217 Z11.4 Hepatitis C screening 41 3185829 Z11.59 Obesity 209518674 E66.9 Body mass index 20-24 - normal 528084193 Z68.24 [id number] JULIANNA Salazar [facility] [address] [place] [address] 10/02/2024 10:25:23 10/02/2024 11:37:23 Body mass index 20-24 - normal 895258069 Z68.22 Obesity 140332180 E66.9 [id number] JULIANNA Salazar [facility] [address] [place] [address] 11/09/2024 13:33:13 11/09/2024 14:00:19 Gynecologic examination 49334922 Z01.419 Mass of scalp 391819409 R22.0 Health Concerns Section Related Observation LastModified by Organization Detai ls LastModified Time None Recorded Concern Status LastModified by Organization Details LastModified Time None Recorded Advance Directives Directive N: Payers Insurance Date Sequence Insurance Name Policy Number Policy Martins Covered Member ID Martins Member ID Guarantor Name 11/09/2024 2 [facility] (MEDICAID HMO) Sharee Euceda [id number] Sharee Kinsey 11/09/2024 1 [place] [id number] 2 Reyna N Kinsey [id number] [place] Rodriguez[place]sey 06/07/2024 1 [place] Sharee Kinsey [id number] Sharee Euceda Notes Date Note Type Note Provider Name and Address Organization Details Recorded Time 06/07/2024 text/html Patient presents to establish care.Has been using [employer] and has lost a lot of weight.Her aunt of breast cancer in early 40s. Her grandmother and great grand mother also had breast cancer. Her mom was positive for BRCA and had prophylactic mastectomy. SHe would like to be tested. JULIANNA Salazar [address] [place] [address], [phone], [employer] 06/07/2024 17:26:56 10/02/2024 text/html Patient presents to followup.Has lost weight with [employer] and is doing well. JULIANNA Salazar [address] [place], [address], [employer] 10/02/2024 11:56:30 11/09/2024 text/html Noticed a knot o n the back of her head a week or so ago. It is tender. Seems to be getting a little bigger. No injury. JULIANNA Salazar [address] [place], [address], [employer] 11/12/2024 17:35:05 OBGyn Episode No OBEpisode recorded.
--- OUTSIDE RECORDS SUMMARY | 2024-11-15 12:53 | XMS_ITS | Encounter Summary ---
Author Organization [facility] Address [address] [place] [address] Care Team Providers Care International Accountant Name Role Phone Pcp, No Primary Care Provider Unavailabl e Reason for Visit * Reason Onset Date Comments Genetic Counseling Intake 09/17/2024 Encounter Details Date Type Department Care Team (Late Contact Info) Description 09/17/2024 Telephone PAV [facility] Genetic Counseling [address] [facility] [place] [address] Arely [place] Genetic Counseling Intake Social History Tobacco Use Types Packs/Day Years Used Date Smoking Tobacco: Never Assessed Comments Unknown Sex and Gender Information Value Date Recorded Sex Assigned at Not on file Legal Sex Female 7:37 PM EDT Gender Identity Not on file Sexual Orientation Not on file documented as of this encounter Miscellaneous Notes * Telephone Encounter - René Morales - 09/17/2024 10:20 AM EDT Genetic Counseling Stitch Bonder Machine Operator Helper called patient to obtain family history information prior to their visit. Patient unable to provide info at this time so [facility] reminded patient of their upcoming genetic counseling appointment via telehealth and received verbal confirmation they would be attending. Asked patient to please fill out family history questionnaire via [employer] before their visit. documented in this encounter Plan of Treatment Upcoming Encounters Date Type Department Care Team (Late Contact Info) Description 11/29/2024 1:15 PM EDT Clinical Support Pav [facility] Ne[facility] Res[facility] [address] [facility] [place] [address] Arely [place] documented as of this encounter Visit Diagnoses Not on filedocumented in this encounter Care Teams International Accountant Relationship Specialty Start Date End Date Pcp, No [address] [place] [address] PCP - General Family Medicine 07/23/24 documented as of this encounter
--- OUTSIDE RECORDS SUMMARY | 2024-11-15 12:53 | XMS_ITS | Clinical Summary ---
Author Organization [facility] Address [address] [id number] Care Team Providers Care Principle Software Engineer Name Role Phone Pcp, No Primary Care Provider Unavailabl e Encounters Date Type Department Care Team Description 09/21/2024 Telephone Pav [facility] Head[facility] Res[facility] [address] [facility], [address] [place] [phone] Arely [place] 09/21/2024 Telephone Pav [facility] Head[facility] Ne[facility] Res[facility] [address] [facility] [place] [address] Arely [place] 09/17/2024 Telephone PAV [facility] Genetic Counseling [address] [facility] [place] [address] Arely [place] Genetic Counseling Intake from Last 3 Months Social History Tobacco Use Types Packs/Day Years Used Date Smoking Tobacco: Never Assessed Comments Unknown Sex and Gender Information Value Date Recorded Sex Assigned at Not on file Legal Sex Female 7:37 PM EDT Gender Identity Not on file Sexual Orientation Not on file Plan of Treatment Upcoming Encounters Date Type Department Care Team (Late st Contact Info) Description 11/29/2024 1:15 PM EDT Clinical Support Pav [facility] [address] [facility] [place] [address] Arely [place] Health Maintenance Due Date Last Done Comments [facility]-Depression Screening 2000 [facility]-HIV Screening 2000 [facility]-Hepatitis C Screening 2000 [facility]-/Child/Adol SDOH Screenings 2000 [facility]-Varicella Vaccines (2 of 2 - 2-dose childhood series) 01/04/2005 10/12/2004 HPV Vaccines (2 - 2-dose series) 05/17/2012 11/15/2011 [facility]- SDOH Screenings 02/04/2018 [facility]-Adult SDOH Screenings 02/04/2018 [facility]-Pap Smear 02/04/2021 [facility]-DTaP,Tdap,and Td Vaccines (7 - Td or Tdap) 11/14/2021 11/15/2011, 02/20/2004, 10/12/2001, Additional history exists [id number] Vaccine (1 - season) 2024 [facility]-Influenza Vaccine (#1) 2024 [facility]-Zoster Vaccines (1 of 2) 02/04/2050 10/12/2004 [facility]-Hepatitis B Vaccines Completed 001, 2000, 2000 [facility]-HIB Vaccines Completed 10/12/2001, 04/2001, 2000, Additional history exists [facility]-IPV Vaccines Completed 02/20/2004, , 2000, Additional history exists [facility]-Hepatitis A Vaccines Completed 12/05/2017, 10/30 [facility]-Pneumococcal Vaccine: Pediatrics (0 to 5 Years) and At-Risk Patients (6 to 49 Years) Aged Out No longer eligible based on patient's age to complete this topic [facility]-Rotavirus Vaccines Aged Out No lo nger eligible based on patient's age to complete this topic Insurance [facility] MEDICAID [facility] Care Teams Principle Software Engineer Relationship Specialty Start Date End Date Pcp, She [address] [place] [address] PCP - General Family Medicine 07/23/24
--- OUTSIDE RECORDS SUMMARY | 2024-11-15 12:53 | XMS_ITS | Continuity of Care Document ---
Author Organization [place] - [employer] [facility] Address [address] [place] [address] Assessment No assessment recorded. Plan of Treatment Reminders Order Date Submit Date Provider Last Modified By Organization Details Last Modified Time Details Appointments None recorded. Lab None recorded. Referral gynecologi st referral 2024 025 [facility] Georgia Reese DO, [address], [address], [place], [address], 5 09:09:19 Procedures None recorded. Surgeries None recorded. Imaging XR, skull 2024 025 [facility] Centralized Scheduling, [address] [place] [address] , [place], [address], 5 11:16:42 Medication Orders Bactrim DS 800 mg-160 mg tablet 2024 025 [facility] 5[facility], [address], [address], 5 13:54:40 Patient TargetsNo targets recorded. Patient InstructionsNo instructions recorded. Reason for Referral Tax Collector Referral for Gy necologic examination Referring Physician: Gina Breen, Family Medicine, Encounter Date: 11/09/2024 Results Created Date Observation Date Name Description Value Unit Range Abnormal Flag Note LastModifiedBy Organization Detail LastModifiedTime 11/13/1911/09/2024 XR, skull No observ ation record ed. [email or web address] (Radiology) [address] , [place], [address], 11/12/2024 17:35:21 Result Notes None recorded. Problems Name Problem SNOMED Code Status Onset Date Resolution Date Notes Provider Name and Address Organization Details Recorded Time Obesity 508709763 Active 025 JULIANNA Salazar [address] [place] [address], [phone], [employer] 5 11:47:10 Vitamin D deficiency 99530630 Active 025 JULIANNA Salazar [address] [place] [address], [phone], [employer] 11:47:15 Mass of scalp 846340517 Active 025 JULIANNA Salazar [address] [place] [address], [phone], [employer] 13:54:06 Problem Notes None recorded. Medical [...] and Address Organization Details Last Updated DateTime 167.64 cm 22.9 kg/m2 15133.6 8 g 98 % 98 % 86 /min 98.2 [degF] 102/68 mm[Hg] [employer]. 13:41:31 Social History Question Answer Notes LastModified by Organizat ion Details LastModified Time Tobacco Smoking Status Never Smoker Radhaestuardo Morillo [facility], [employer]. 06/07/2024 14:53:31 Do You Have An Advance [...] Information not available 06/07/2024 What Type Of Contracts Director Do You Use? [employer] Information not available 06/07/2024 Have You Been To An Area Known To Be High Risk For COVID-19? No Information not available 06/07/2024 Are You Deaf Or Do You Have Serious Difficulty Hearing? No Information not available 06/07/2024 What Type Of Diet Are You Following? REGULAR Information not available 06/07/2024 Who Is Your Employer? [employer] Information not available 06/07/2024 How Many Days [...] Do You Have A Medical Power Of Sprinkling Truck Driver? No Information not available 06/07/2024 What Was [...] anxious, or unable to sleep at night)? [id number] Information not available 06/07/2024 Do you have [...] Artery Disease N Other N Gout N Kidney Stones N Blood Diseases N Hyperthyroidism N Breast Cancer N Blood Transfusion N Emergency room visit since last appointm ent. N Hypothyroidism N Lung Disease N COPD N Dermatologic Disorders N Depression N Defects or Inherited Disease N Developmental [...] Condition N Organ Transplant N Dialysis N Fibromyalgia N Schizophrenia N Headaches N Kidney Disease N Allergies/Hayfever N Heart Problems N Ear or Hearing Problems N Hospitalizations N Learning Disorder N Artificial Joints N Thyroid Problems N GI Problems N Acne N ADD/ADHD N Eating Disorder N Anemia N Constipation N Mental Illness N Ovarian Cancer N Diabetes N Bedwetting N Hepatitis/Liver Disease N Tuberculosis N Eczema N Diverticulitis N Abuse/Domestic Violence N Asthma N Trauma/Violence N Substance Abuse N Reflux/GERD N Depression/ depression N Hepatitis N Heart Disease N Pulmonary Embolism N Tourette Syndrome N Pre-Eclampsia N Hypertension N Chronic Ear Infections N Osteoporosis N Chicken Pox N Autism Spectrum Disorder (ASD) N Thrombophilias N Gynecological History Statement/Question Response [...] unspecified formulation 1 completed Radha Vice null, [employer] 06/07/2024 14:52:03 Hib, unspecified formulation 1 completed Radha Vice null, [employer] 06/07/2024 14:52:03 Hib, unspecified formulation 1 completed Radha Vice null, [employer] 06/07/2024 14:52:03 Hib, unspecified formulation 2 completed Radha Vice null, [employer] 06/07/2024 14:52:03 IPV 1 completed Radha Vice null, [employer] 06/07/2024 14:52:03 IPV 1 completed Radha Vice null, [employer] 06/07/2024 14:52:03 IPV 1 completed Radha Vice null, [employer] 06/07/2024 14:52:03 IPV 4 completed Radha Vice null, [employer] 06/07/2024 14:52:03 MMR 2 completed Radha Vice null, [employer] 06/07/2024 14:52:03 MMR 5 completed Radha Vice null, [employer] 06/07/2024 14:52:03 Tdap 2 completed Radha Vice null, [employer] 06/07/2024 14:52:03 varicella 5 completed Radha Vice null, [employer] 06/07/2024 14:52:03 HPV, quadrivalent 2 completed Radha Vice null, [employer] 06/07/2024 14:52:03 Hep B, adolescent or pediatric 1 completed Radha Vice null, [employer] 06/07/2024 14:52:03 Hep B, adolescent or pediatric 1 completed Radha Vice null, [employer] 06/07/2024 14:52:03 Hep B, adolescent or pediatric 0 completed Radha Vice null, [employer] 06/07/2024 14:52:03 Hep A, ped/adol, 2 dose 2 completed Radha Vice null, [employer] 06/07/2024 14:52:03 Hep A, ped/adol, 2 dose 8 completed Radha Vice null, [employer] 06/07/2024 14:52:03 meningococcal MCV4P 8 completed Radha Vice null, [employer] 06/07/2024 14:52:03 DTaP, unspecified formulation 1 completed Radha Vice null, [employer] 06/07/2024 14:52:03 DTaP, unspecified formulation 1 completed Radha Vice null, [employer] 06/07/2024 14:52:03 DTaP, unspecified formulation 1 completed Radha Vice null, [employer] 06/07/2024 14:52:03 DTaP, unspecified formulation 2 completed Radha Vice null, [employer] 06/07/2024 14:52:03 DTaP, unspecified formulation 4 completed Radha Vice null, [employer] 06/07/2024 14:52:03 meningococcal MCV4, unspecified formulation 2 completed Radha Vice null, [employer] 06/07/2024 14:52:03 Past Encounters Encounter ID Performer Location Encounter Start Date Encounter Closed Date Diagnosis/Indication Diagnosis SNOMED-CT Code Diagnosis ICD10 Code Diagnosis Note [id number] JULIANNA Salazar [facility] [address] [place] [address] 11/09/2024 13:33:13 11/09/2024 14:00:19 Gynecologic examination 98649981 Z01.419 Mass of scalp 421987108 R22.0 Health Concerns Section Related Observation LastModified by Organization Detai ls LastModified Time None Recorded Concern Status LastModified by Organization Details LastModified Time None Recorded Payers Encounter Date Sequence Insurance Name Policy Number Policy Martins Covered Member ID Martins Member ID Guarantor Name 11/09/2024 1 [place] [id number] 2 Reyna [id number] Sharee Euceda 11/09/2024 2 [facility] (MEDICAID HMO) Sharee Euceda [id number] Sharee Euceda Notes Date Note Type Note Provider Name and Address Organization Details Recorded Time 11/09/2024 text/html Noticed a knot on the back of her head a week or so ago. It is tender. Seems to be getting a little bigger. No injury. JULIANNA Salazar [address] [place] [address], [place], [address], [employer] 11/12/2024 17:35:05 OBGyn Episode No OBEpisode recorded.
--- OUTSIDE RECORDS SUMMARY | 2024-11-15 12:53 | XMS_ITS | Encounter Summary ---
Author Organization Healthcare Address [address] [id number] Care Team Providers Care Visual Basic Programmer Name Role Phone Pcp, No Primary Care Provider Unavailabl e Encounter Details Date Type Department Care Team (Late st Contact Info) Description 09/21/2024 Telephone Pav CC Head, Neck & Respiratory [address] [facility], [address] [place] [id number] Arely [place] Social History Tobacco Use Types Packs/Day Years Used Date Smoking Tobacco: Never Assessed Comments Unknown Sex and Gender Information Value Date Recorded Sex Assigned at Not on file Legal Sex Female 7:37 PM EDT Gender Identity Not on file Sexual Orientation Not on file documented as of this encounter Miscellaneous Notes * Telephone Encounter - Reyna Aviles - 09/21/2024 1:18 PM EDT [facility] called pt to reschedule 09/25 appt due to provider emergency. Pt confirmed 11/29, and [facility] invitedpt to call us prior to that with any questions or concerns. documented in this encounter Plan of Treatment Upcoming Encounters Date Type Department Care Team (Late st Contact Info) Description 11/29/2024 1:15 PM EDT Clinical Support Pav CC Head, Neck & Respiratory [address] [facility] [place] [address] Arely [place] documented as of this encounter Visit Diagnoses Not on filedocumented in this encounter Care Teams Visual Basic Programmer Relationship Specialty Start Date End Date Pcp, She [address] [place] [address] PCP - General Family Medicine 07/23/24 documented as of this encounter
--- OUTSIDE RECORDS SUMMARY | 2024-11-15 12:53 | XMS_ITS | Continuity of Care Document ---
Author Organization [facility] [employer] [facility] Address [address] [place] [address] Assessment No assessment recorded. Plan of Treatment Reminders Order Date Submit Date Provider Last Modified By Organization Details Last Modified Time Details Appointments None recorded. Lab None recorded. Referral None recorded. Procedures None recorded. Surgeries None recorded. Imaging None recorded. Medication Orders Wegovy 2.4 mg/0.75 mL subcutaneou s pen injector [id number] [place] [address] Pharmacy 591, [address] [place] [address], [address], 5 11:56:28 Patient TargetsNo targets recorded. Patient InstructionsNo instructions recorded. Reason for Referral None Reported. Results Created Date Observation Date Name Description Value Unit Range Abnormal Flag Note LastModifiedBy Organization Detail LastModifiedTime 11/13/19 25 11/09/2024 XR, skull No observ ation record ed. [email or web address] [facility] (Radiology) [address] , [place], [address], 11/12/2024 17:35:21 Result Notes None recorded. Problems Name Problem SNOMED Code Status Onset Date Resolution Date Notes Provider Name and Address Organization Details Recorded Time Obesity 000267709 Active 025 JULIANNA Salazar [address] [place] [address], [phone], [place] [employer] 5 11:47:10 Vitamin D deficiency 03962041 Active 025 JULIANNA Salazar [address] [place], [address], [employer] 5 11:47:15 Mass of scalp 783302666 Active Miryam JULIANNA Salazar [address] [place], [address], [employer] 5 13:54:06 Problem Notes None recorded. Medical Equipment [...] Updated DateTime 5 167.64 cm 22.5 kg/m2 04856.4 9 g 100 % 100 % 84 /min 98 [degF] 104/70 mm[Hg] [employer]. 10:37:15 Social History Question Answer Notes LastModified by Organizat ion Details LastModified Time Tobacco Smoking Status Never Smoker [employer] 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 No Information not available 06/07/2024 Are You Deaf Or Do You Have Serious Difficulty Hearing? No Information not available 06/07/2024 What Type Of Diet Are You Following? REGULAR Information not available 06/07/2024 Who Is Your Employer? [employer] Information not available 06/07/2024 How Many [...] Do You Have A Medical Power Of Senior [employer]? No Information not available 06/07/2024 What Was [...] anxious, or unable to sleep at night)? [id number] Information not available 06/07/2024 Do you have [...] Stones N Blood Diseases N Hyperthyroidism N Blood Transfusion N Breast Cancer N Emergency room visit since last appointm ent. N COPD N Depression N Dermatologic Disorders N Lung Disease N Hypothyroidism N Developmental or Behavioral Disorders N Defects or Inherited Disease N Breast Problem N Difficulty Swallowing N Anesthesia Complications N History of STI N Anxiety Disorder N Meniere's disease N Autoimmune disease N Muscle, Joint, or Bone Problems N Vision or Eye Problems N Arthritis N Infertility N Polyps N Mental Disorder N Congenital Anomalies N Acid Reflux (GERD) N Cancer N Stroke N Neurologic/Epilepsy N Endometriosis N Bladder or Kidney Problems N High Cholesterol N Liver Disease N Psychiatric/Mental Health Condition N Organ Transplant N Fibromyalgia N Headaches N Schizophrenia N Dialysis N Kidney Disease N Allergies/Hayfever N Heart [...] unspecified formulation 1 completed Radha Vice null, [employer] 06/07/2024 14:52:03 Hib, unspecified formulation 1 completed Radha Vice null, [employer] 06/07/2024 14:52:03 Hib, unspecified formulation 1 completed Radha Vice null, [employer] 06/07/2024 14:52:03 Hib, unspecified formulation 2 completed Radha Vice null, [employer] 06/07/2024 14:52:03 IPV 1 completed Radha Vice null, [employer] 06/07/2024 14:52:03 IPV 1 completed Radha Vice null, [employer] 06/07/2024 14:52:03 IPV 1 completed Radha Vice null, [employer] 06/07/2024 14:52:03 IPV 4 completed Radha Vice null, [employer] 06/07/2024 14:52:03 MMR 2 completed Radha Vice null, [employer] 06/07/2024 14:52:03 MMR 5 completed Radha Vice null, [employer] 06/07/2024 14:52:03 Tdap 2 completed Radha Vice null, [employer] 06/07/2024 14:52:03 varicella 5 completed Radha Vice null, [employer] 06/07/2024 14:52:03 HPV, quadrivalent 2 completed Radha Vice null, [employer] 06/07/2024 14:52:03 Hep B, adolescent or pediatric 1 completed Radha Vice null, [employer] 06/07/2024 14:52:03 Hep B, adolescent or pediatric 1 completed Radha Vice null, [employer] 06/07/2024 14:52:03 Hep B, adolescent or pediatric 0 completed Radha Vice null, [employer] 06/07/2024 14:52:03 Hep A, ped/adol, 2 dose 2 completed Radha Vice null, [employer] 06/07/2024 14:52:03 Hep A, ped/adol, 2 dose 8 completed Radha Vice null, [employer] 06/07/2024 14:52:03 meningococcal MCV4P 8 completed Radha Vice null, [employer] 06/07/2024 14:52:03 DTaP, unspecified formulation 1 completed Radha Vice null, [employer] 06/07/2024 14:52:03 DTaP, unspecified formulation 1 completed Radha Vice null, [employer] 06/07/2024 14:52:03 DTaP, unspecified formulation 1 completed Radha Vice null, [employer] 06/07/2024 14:52:03 DTaP, unspecified formulation 2 completed Radha Vice null, [employer] 06/07/2024 14:52:03 DTaP, unspecified formulation 4 completed Radha Vice null, [employer] 06/07/2024 14:52:03 meningococcal MCV4, unspecified formulation 2 completed Radha Vice null, [employer] 06/07/2024 14:52:03 Past Encounters Encounter ID Performer Location Encounter Start Date Encounter Closed Date Diagnosis/Indication Diagnosis SNOMED-CT Code Diagnosis ICD10 Code Diagnosis Note [id number] JULIANNA Salazar [facility] [address] [place] [address] 10/02/2024 10:25:23 10/02/2024 11:37:23 Body mass index 20-24 - normal 424227052 Z68.22 Obesity 509966156 E66.9 Health Concerns Section Related Observation LastModified by Organization Detai ls LastModified Time None Recorded Concern Status LastModified by Organization Details LastModified Time None Recorded Payers Encounter Date Sequence Insurance Name Policy Number Policy Martins Covered Member ID Martins Member ID Guarantor Name 10/02/2024 1 [employer] (PPO) [id number] Reyna Euceda [id number] Sharee Euceda 10/02/2024 2 [facility] (MEDICAID HMO) Sharee Euceda [id number] Sharee Euceda Notes Date Note Type Note Provider Name and Address Organization Details Recorded Time 10/02/2024 text/html Patient presents to followup.Has lost weight with Wegovy and is doing well. JULIANNA Salazar [address] [place] [address], [place], [address], [place] [facility] [employer] 10/02/2024 11:56:30 OBGyn Episode No OBEpisode recorded.
--- OUTSIDE RECORDS SUMMARY | 2024-11-15 12:53 | XMS_ITS | Encounter Summary ---
Author Organization Healthcare Address [address] [place] [address] Care Team Providers Care Engineer Geophysical Laboratory Name Role Phone Pcp, No Primary Care Provider Unavailabl e Encounter Details Date Type Department Care Team (Late st Contact Info) Description 09/21/2024 Telephone Pav CC Head, Neck & Respiratory [address] [facility] [place] [address] Arely [place] Social History Tobacco Use Types Packs/Day Years Used Date Smoking Tobacco: Never Assessed Comments Unknown Sex and Gender Information Value Date Recorded Sex Assigned at Not on file Legal Sex Female 7:37 PM EDT Gender Identity Not on file Sexual Orientation Not on file documented as of this encounter Miscellaneous Notes * Telephone Encounter - Reyna Aviles - 09/21/2024 9:18 AM EDT [facility] called pt to confirm 09/25 appt. Asked pt to call us today with any last minute questions or if she's unable to access MyChart. documented in this encounter Plan of Treatment Upcoming Encounters Date Type Department Care Team (Late st Contact Info) Description 11/29/2024 1:15 PM EDT Clinical Support Pav CC Head, Neck & Respiratory [address] [facility] [place] [address] Arely [place] documented as of this encounter Visit Diagnoses Not on filedocumented in this encounter Care Teams Engineer Geophysical Laboratory Relationship Specialty Start Date End Date Pcp, No [address] [place] [address] PCP - General Family Medicine 07/23/24 documented as of this encounter
== END 2024-11-15 23:59 | disposition home or self-care (01) ==
LOC: RAD 12:48
PROVIDERS: PCP Physician Assistant; Visit Provider Physician Assistant
DX: R22.0 Localized swelling, mass and lump, head (principal)
CPT/HCPCS: 76536